=== PATIENT | female | born 1995 | race Caucasian/White ===

== ENCOUNTER 2017-07-24 09:06 | Emergency (ER) | payer BC, MEDICAID ==
[2017-07-24 10:32] LABS: BASOPHILS % (AUTO) 0.2 %; EOSINOPHILS % (AUTO) 0.1 %; HGB - HEMOGLOBIN 14.5 g/dL (12.0-16.0); LYMPHOCYTES # (AUTO) 1.9 10^3/uL (1.5-3.5); LYMPHOCYTES % (AUTO) 11.5 %; MEAN CORPUSCULAR HEMOGLOBIN 29.7 pg (27.0-31.0); MEAN CORPUSCULAR HGB CONC 35.2 g/dL (32.0-36.0); MEAN CORPUSCULAR VOLUME 84.6 fL (81.0-99.0); MEAN PLATELET VOLUME 7.5 fL (7.9-10.8); MONOCYTES # (AUTO) 0.8 10^3/uL (0.0-1.0); MONOCYTES % (AUTO) 4.5 %; NEUTROPHILS % (AUTO) 83.7 %; PLT - PLATELET COUNT 430 10^3/uL (130-450); RED BLOOD COUNT 4.89 10^6/uL (4.20-5.40); RED CELL DISTRIBUTION WIDTH 13.3 % (12.0-15.0); WHITE BLOOD COUNT 16.7 x10^3/uL (4.8-10.8)
--- NOTE | 2017-07-24 10:33 | ED Physician Documentation ---
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 denies: Constipation, Diarrhea : denies: Dysuria, Frequency Skin: denies: Rash Musculoskeletal: denies: Neck pain, Back pain, Extremity pain PD PAST MEDICAL HISTORY - Past Medical History Past Medical History: Yes - Past Surgical History Past Surgical History: Yes - Present Medications Home Medications: Ambulatory Orders Medication Instructions Recorded Confirmed No Known Home Medications [No 07/24/17 07/24/17 Known Home Medications] - Allergies Allergies/Adverse Reactions: Allergies Allergy/AdvReac Type Severity Reaction Status Date / Time Penicillins Allergy Hives Verified 07/24/17 09:42 - Social History Does the pt smoke?: No Smoking Status: Never smoker Does the pt drink ETOH?: No Does the pt have substance abuse?: Yes Substance Use and Type: Marijuana - Immunizations Immunizations are current?: Yes PD ED PE NORMAL - Vitals Vital signs reviewed: Yes (hypertensive mild ) - General General: Alert and oriented X 3, No acute distress, Well developed/nourished - HEENT HEENT: Atraumatic, EOMI - Neck Neck: Supple, no meningeal sign - Cardiac Cardiac: RRR, No murmur - Respiratory Respiratory: No respiratory distress, Clear bilaterally - Abdomen Abdomen: Soft, Non tender - Back Back: No CVA TTP, No spinal TTP - Derm Derm: Normal color, Warm and dry, No rash - Extremities Extremities: No deformity, No edema - Neuro Neuro: No motor deficit, No sensory deficit Eye Opening: Spontaneous Motor: Obeys Commands Verbal: Oriented GCS Score: 15 - Psych Psych: Normal mood, Normal affect Results - Vitals Vitals: Vital Signs - 24 hr 07/24/17 09:39 Temperature 36.3 C L Heart Rate 73 Respiratory 18 Rate Blood Pressure 132/78 H O2 Saturation 100 Oxygen O2 Source Room air - Labs Labs: Laboratory Tests 07/24/17 07/24/17 07/24/17 10:28 10:28 10:42 WBC 16.7 H RBC 4.89 Hgb 14.5 Hct 41.3 MCV 84.6 MCH 29.7 MCHC 35.2 RDW 13.3 Plt Count 430 MPV 7.5 L Neut # (Auto) 14.0 H Lymph # (Auto) 1.9 Edgar # (Auto) 0.8 Eos # (Auto) 0.0 Baso # (Auto) 0.0 Absolute Nucleated RBC 0.01 Nucleated RBC % 0.1 Sodium 133 L Potassium 3.3 L Chloride 102 Carbon Dioxide 22 Anion Gap 9.0 BUN 8 Creatinine 0.5 Estimated GFR (MDRD) 156 Glucose 108 H Calcium 8.9 Total Bilirubin 1.0 AST 15 ALT 15 Alkaline Phosphatase 43 Total Protein 7.6 Albumin 4.4 Globulin 3.2 Albumin/Globulin Ratio 1.4 Lipase 23 Urine Color DARK YELLOW Urine Clarity CLEAR Urine pH 6.5 Ur Specific [place] 1.025 Urine Protein TRACE Urine Glucose (UA) NEGATIVE Urine Ketones >=80 H Urine Occult Blood NEGATIVE Urine Nitrite NEGATIVE Urine Bilirubin NEGATIVE Urine Urobilinogen 0.2 (NORMAL) Ur Leukocyte Esterase NEGATIVE Ur Microscopic Review NOT INDICATED Urine Culture Comments NOT INDICATED - Rads (name of study) 1st trimester ultrasound OB Radiology: Prelim report reviewed (Impression: Positive gestational sac at approximately 6 weeks no pole or cardiac activity yet question too early.) , EMP read indepedently, See rad report Procedures - Bedside sono Bedside sono by EMP: With the use of bedside ultrasound the pelvis is imaged there does appear to be a gestational sac measuring 7 weeks 6 days. I am not able to identify a fetus. - IVC sono (time) 1030 Bedside IVC sono: IVC measures (cm) (1.2), Dehydration (est 1 lilter deficit afte 500 in.) Departure - Departure Disposition: 01 Home, Self Care Clinical Impression: Hyperemesis gravidarum Condition: Stable Instructions: ED Preg Morning Sickness Follow-Up: Val Rose PA [Primary Care Provider] - Comments: Today here in the emergency department we were able to establish that there is a inside the uterus we are unable to see a pole. It is recommended you have a repeat ultrasound in the next 1-2 weeks. Follow-up with your cigar brander. For the nausea and vomiting take vitamin B6 and doxylamine every 6 hours as needed.
[2017-07-24 10:47] LABS: ALBUMIN 4.4 g/dL (3.2-5.5); ALBUMIN/GLOBULIN RATIO 1.4 (1.0-2.2); CALCIUM 8.9 mg/dL (8.5-10.3); CREATININE 0.5 mg/dL (0.4-1.0); TOTAL PROTEIN 7.6 g/dL (6.7-8.2)
[2017-07-24 10:57] LABS: GLUCOSE, URINE (UA) NEGATIVE (NEGATIVE); KETONES,URINE (UA) >=80 mg/dL (NEGATIVE); LEUKOCYTE ESTERASE, URINE NEGATIVE (NEGATIVE); NITRITE,URINE NEGATIVE (NEGATIVE); OCCULT BLOOD,URINE NEGATIVE (NEGATIVE); PH,URINE 6.5 PH (5.0-7.5); PROTEIN,URINE TRACE mg/dL (NEGATIVE); UROBILINOGEN,URINE 0.2 (NORMAL) E.U./dL (NORMAL)
[2017-07-24] MEDS ORDERED: SODIUM CHLORIDE 0.9% 1,000 ML IV ONE (10:57)
[2017-07-24] MEDS ORDERED: PYRIDOXINE 100 MG TABLET PO STA (10:57)
[2017-07-24] MEDS ORDERED: DOXYLAMINE 25 MG TABLET PO STA (10:57)
[2017-07-24 11:03] LABS: BILIRUBIN,URINE NEGATIVE (NEGATIVE); CLARITY,URINE CLEAR (CLEAR); ICTOTEST,URINE NEGATIVE
[2017-07-24 12:33] VITALS: BP 104/67
--- NOTE | 2017-07-27 09:27 | Ultrasound Report ---
FIRST TRIMESTER OB ULTRASOUND: 07/24/2017 HISTORY: Early , vomiting. COMPARISON: No comparisons. TECHNIQUE: Realtime scanning by the supervisor inspection and testing with saved static images reviewed. Transabdominal approach for global evaluation. Endovaginal scanning for detailed assessment of the fetus. FINDINGS: Last menstrual period unknown. Single intrauterine gestational sac 16.3 mm, 6 weeks 3 days, BARBI 03/16/2018. An embryo and cardiac activity are not seen. A 3 mm yolk sac is present. Uterus is anteverted and normal in appearance. Cervix is long and closed. Right ovary 2.8 x 1.8 x 2.3 cm and left ovary 3.6 x 2.4 x 2.8 cm. Both ovaries appear normal. No free fluid. IMPRESSION: SINGLE INTRAUTERINE GESTATIONAL SAC CONTAINING A YOLK SAC. ESTIMATED GESTATIONAL AGE BASED ON MEAN GESTATIONAL SAC DIAMETER IS 6 WEEKS 3 DAYS, BARBI 03/16/2018. A POLE AND CARDIAC ACTIVITY ARE NOT YET SEEN. SUGGEST FOLLOW-UP ULTRASOUND IN 10 TO 14 DAYS TO CONFIRM VIABILITY. TD: 07/24/2017 11:52 [facility]
== END 2017-07-24 12:33 | disposition home or self-care (01) ==
LOC: ED 09:06
DX: O21.1 Hyperemesis gravidarum with metabolic disturbance (principal); Z3A.01 Less than 8 weeks gestation of pregnancy
CPT/HCPCS: 36415; 76801; 76817; 80053; 81003; 83690; 85025; 96360; 96361; 99283; 99284; A9270; 81001; 87086

== ENCOUNTER 2017-07-28 05:33 | Emergency (ER) | payer BC ==
[2017-07-28] MEDS ORDERED: diphenhydrAMINE INJ 50 MG/ML VIAL IVP STA (05:45)
[2017-07-28] MEDS ORDERED: METOCLOPRAMIDE 10 MG/2 ML VIAL IVP STA (05:45)
[2017-07-28] MEDS ORDERED: SODIUM CHLORIDE 0.9% 1,000 ML IV ONE (05:45)
--- NOTE | 2017-07-28 05:51 | ED Physician Documentation ---
PD HPI FEMALE - Stated complaint Stated Complaint: NVD - Chief complaint Chief Complaint: Abd Pain - History obtained from History obtained from: Patient, Family - History of Present Illness Timing - onset: How many weeks ago (1) Timing - details: Gradual onset, Intermittant Similar symptoms before: Work up / diagnostics Recently seen: Emergency Dept - Additional information Additional information: Patient is a 22 year old female approximately 6 weeks by ultrasound who is presenting to the emergency department for nausea and vomiting. patient states that she was here a few days prior and still has uncontrolled vomiting. Patient denies abdominal pain, vaginal bleeding or vaginal discharge. Review of Systems Ten Systems: 10 systems reviewed and negative Constitutional: denies: Fever, Chills GI: reports: Nausea, Vomiting. 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 07/28/17 [Karen Pagan 10-10 mg Tablet] Metoclopramide [Reglan] 10 mg PO Q6H #20 tablet 07/28/17 Ondansetron HCl [Zofran] 8 mg PO Q8HR PRN 07/28/17 07/28/17 - Allergies Allergies/Adverse Reactions: Allergies Allergy/AdvReac Type Severity Reaction Status Date / Time Penicillins Allergy Hives Verified 07/28/17 05:43 - Social History Does the pt smoke?: No Smoking Status: Never smoker Does the pt drink ETOH?: No Does the pt have substance abuse?: Yes - Immunizations Immunizations are current?: Yes - POLST Patient has POLST: No PD ED PE NORMAL - Vitals Vital signs reviewed: Yes - General General: Alert and oriented X 3, No acute distress - HEENT HEENT: Atraumatic - Cardiac Cardiac: RRR - Respiratory Respiratory: No respiratory distress - Abdomen Abdomen: Soft - Derm Derm: Normal color, Warm and dry - Extremities Extremities: No deformity - Neuro Neuro: Alert and oriented X 3, No motor deficit Eye Opening: Spontaneous PD ED PE EXPANDED - HEENT HEENT: Dry mucous membranes Results - Vitals Vitals: Vital Signs - 24 hr 07/28/17 07/28/17 07/28/17 05:35 06:15 06:43 Temperature 36.5 C Heart Rate 97 98 Respiratory 16 17 16 Rate Blood Pressure 126/65 O2 Saturation 97 100 07/28/17 08:44 Temperature Heart Rate 74 Respiratory 16 Rate Blood Pressure 126/82 H O2 Saturation 100 Oxygen O2 Source Room air PD MEDICAL DECISION MAKING - ED course Complexity details: reviewed old records, reviewed results, re-evaluated patient , considered differential, d/w patient, d/w family ED course: Patient was seen and examined at bedside. patient was well appearing and in no acute distress. IV access was gained. urine was collected. Patient was treated with a 2 liter bolus, benadryl and reglan. Patient had no episodes of emesis while in the emergency department. Patient required no further work up and was stable for discharge with outpatient followup. - Sepsis Event Vital Signs: Vital Signs - 24 hr 07/28/17 07/28/17 07/28/17 05:35 06:15 06:43 Temperature 36.5 C Heart Rate 97 98 Respiratory 16 17 16 Rate Blood Pressure 126/65 O2 Saturation 97 100 07/28/17 08:44 Temperature Heart Rate 74 Respiratory 16 Rate Blood Pressure 126/82 H O2 Saturation 100 Oxygen O2 Source Room air Departure - Departure Disposition: 01 Home, Self Care Clinical Impression: Hyperemesis gravidarum Condition: Good Instructions: ED Preg Morning Sickness Follow-Up: Val Rose PA [Primary Care Provider] - Prescriptions: Doxylamine/Pyridoxine HCl [Karen Pagan 10-10 mg Tablet] 1 each PO TID #20 tablet. Metoclopramide [Reglan] 10 mg PO Q6H #20 tablet Comments: Your symptoms today are being caused by hyperemesis gravidum. the first thing is dietary changes, including bland foods. You have also been prescribed a few different medications that you can also try. This may be a recurrent issue for you and you may return to the emergency department at any time for new, worsening or uncontrollable symptoms. Discharge Date/Time: 07/28/17 08:45
[2017-07-28 08:45] VITALS: BP 126/82
== END 2017-07-28 08:45 | disposition home or self-care (01) ==
LOC: ED 05:33
DX: O21.0 Mild hyperemesis gravidarum (principal); Z3A.01 Less than 8 weeks gestation of pregnancy
CPT/HCPCS: 96361; 96374; 99283; J1200; J2765

== ENCOUNTER 2017-07-29 05:18 | Inpatient (IN) | payer BC ==
[2017-07-29] MEDS ORDERED: SODIUM CHLORIDE 0.9% 1,000 ML IV ONE ×2 (05:27→06:23)
[2017-07-29] MEDS ORDERED: diphenhydrAMINE INJ 50 MG/ML VIAL IVP STA (05:31)
[2017-07-29] MEDS ORDERED: METOCLOPRAMIDE 10 MG/2 ML VIAL IVP STA (05:31)
[2017-07-29 05:59] LABS: BASOPHILS % (AUTO) 0.2 %; HGB - HEMOGLOBIN 13.9 g/dL (12.0-16.0); LYMPHOCYTES # (AUTO) 1.9 10^3/uL (1.5-3.5); LYMPHOCYTES % (AUTO) 8.7 %; MEAN CORPUSCULAR HEMOGLOBIN 29.7 pg (27.0-31.0); MEAN CORPUSCULAR HGB CONC 34.3 g/dL (32.0-36.0); MEAN CORPUSCULAR VOLUME 86.6 fL (81.0-99.0); MEAN PLATELET VOLUME 7.6 fL (7.9-10.8); MONOCYTES % (AUTO) 4.5 %; NEUTROPHILS # (AUTO) 18.7 10^3/uL (1.5-6.6); NEUTROPHILS % (AUTO) 86.6 %; PLT - PLATELET COUNT 486 10^3/uL (130-450); RED BLOOD COUNT 4.67 10^6/uL (4.20-5.40); RED CELL DISTRIBUTION WIDTH 13.5 % (12.0-15.0); WHITE BLOOD COUNT 21.6 x10^3/uL (4.8-10.8)
--- NOTE | 2017-07-29 06:03 | ED Physician Documentation ---
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 This is the patient's third visit in the last week for vomiting. patient was treated with two liters of fluid yesterday but states that she continues to not be able to hold anything down so she returned to the emergency department. Review of Systems Constitutional: denies: Fever, Chills GI: reports: Nausea, Vomiting. 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 07/28/17 [Karen Pagan 10-10 mg Tablet] Metoclopramide [Reglan] 10 mg PO Q6H #20 tablet 07/28/17 Ondansetron HCl [Zofran] 8 mg PO Q8HR PRN 07/28/17 07/28/17 - Allergies Allergies/Adverse Reactions: Allergies Allergy/AdvReac Type Severity Reaction Status Date / Time Penicillins Allergy Hives Verified 07/28/17 05:43 - Social History Does the pt smoke?: No Smoking Status: Never smoker Does the pt drink ETOH?: No Does the pt have substance abuse?: Yes - Immunizations Immunizations are current?: Yes - POLST Patient has POLST: No PD ED PE NORMAL - General General: Alert and oriented X 3 - HEENT HEENT: Atraumatic - Neck Neck: Supple, no meningeal sign - Cardiac Cardiac: RRR, No murmur - Respiratory Respiratory: No respiratory distress - Abdomen Abdomen: Soft, Non tender, Non distended - Derm Derm: Normal color, Warm and dry - Extremities Extremities: No deformity - Neuro Neuro: Alert and oriented X 3 Eye Opening: Spontaneous Motor: Obeys Commands Verbal: Oriented GCS Score: 15 PD ED PE EXPANDED - HEENT HEENT: Dry mucous membranes Results - Vitals Vitals: Vital Signs - 24 hr 07/29/17 05:22 Temperature 36.4 C L Heart Rate 72 Respiratory 18 Rate Blood Pressure 122/77 O2 Saturation 98 Oxygen O2 Source Room air - Labs Labs: Laboratory Tests 07/29/17 07/29/17 05:37 05:37 WBC 21.6 H RBC 4.67 Hgb 13.9 Hct 40.5 MCV 86.6 MCH 29.7 MCHC 34.3 RDW 13.5 Plt Count 486 H MPV 7.6 L Sodium 135 Potassium 3.0 L Chloride 100 L Carbon Dioxide 22 Anion Gap 13.0 BUN 10 Creatinine 0.5 Estimated GFR (MDRD) 156 Glucose 124 H Calcium 9.3 Phosphorus 4.0 Magnesium 1.9 Total Bilirubin 1.9 H AST 61 H ALT 55 Alkaline Phosphatase 42 Total Protein 7.7 Albumin 4.4 Globulin 3.3 Albumin/Globulin Ratio 1.3 Lipase 23 PD MEDICAL DECISION MAKING - ED course Complexity details: reviewed old records, reviewed results, re-evaluated patient , considered differential, d/w patient, d/w tax consultant ED course: Patient was seen and examined at bedside. IV access was gained and labs were drawn. patient was started on fluid bolus, reglan and benadryl. When patient' s labs came back her potassium was low and replacement potassium was started. patient was started on a second liter of fluid. Urine was collected. application manager OB was contacted and the case was discussed with him. It was decided patient had failed outpatient therapy and was placed in observation for further evaluation and care. - Sepsis Event Vital Signs: Vital Signs - 24 hr 07/29/17 05:22 Temperature 36.4 C L Heart Rate 72 Respiratory 18 Rate Blood Pressure 122/77 O2 Saturation 98 Oxygen O2 Source Room air Departure - Departure Disposition: ED Place in Observation Clinical Impression: Hyperemesis gravidarum Condition: Good
[2017-07-29 06:16] LABS: ALBUMIN 4.4 g/dL (3.2-5.5); ALBUMIN/GLOBULIN RATIO 1.3 (1.0-2.2); BILIRUBIN,TOTAL 1.9 mg/dL (0.2-1.0); CALCIUM 9.3 mg/dL (8.5-10.3); CREATININE 0.5 mg/dL (0.4-1.0); MAGNESIUM 1.9 mg/dL (1.7-2.8); TOTAL PROTEIN 7.7 g/dL (6.7-8.2)
[2017-07-29] MEDS ORDERED: POTASSIUM CHLOR 10 MEQ/100 ML 10 MEQ/100 ML BAG IV ONE (06:23)
[2017-07-29 06:38] LABS: GLUCOSE, URINE (UA) NEGATIVE (NEGATIVE); KETONES,URINE (UA) >=80 mg/dL (NEGATIVE); LEUKOCYTE ESTERASE, URINE NEGATIVE (NEGATIVE); NITRITE,URINE NEGATIVE (NEGATIVE); OCCULT BLOOD,URINE SMALL (NEGATIVE); PROTEIN,URINE TRACE mg/dL (NEGATIVE); UROBILINOGEN,URINE 0.2 (NORMAL) E.U./dL (NORMAL)
[2017-07-29 06:44] LABS: CLARITY,URINE CLEAR (CLEAR)
[2017-07-29 06:47] LABS: BILIRUBIN,URINE NEGATIVE (NEGATIVE); ICTOTEST,URINE NEGATIVE
[2017-07-29 06:49] LABS: BACTERIA,URINE Few /HPF (None Seen); MUCUS,URINE Moderate Strands; RBC,URINE 0-5 /HPF (0-5); SQUAMOUS EPITHELIAL CELL,UR FEW Squamous (<= Few)
[2017-07-29 06:52] LABS: DIFFERENTIAL COMMENT MANUAL=AUTO DIFF; PLATELET ESTIMATE, MANUAL INCREASED (>450,000) (NORMAL); RBC MORPHOLOGY (MULTIPLE) NORMAL APPEARANCE (NORMAL)
[2017-07-29] MEDS ORDERED: THIAMINE INJ 100 MG, FOLIC ACID INJ 1 MG in SODIUM CHLORIDE 0.9% 100ML 100 ML IV SCH (08:30)
[2017-07-29] MEDS ORDERED: POTASSIUM CHLORIDE INJ 40 MEQ in SODIUM CHLORIDE 0.9% 480 ML IV ONE (08:30)
[2017-07-29] MEDS ORDERED: NACL IV SCH ×2 (09:00→11:00)
[2017-07-29] MEDS ORDERED: DEXTROSE IV ONE (09:00)
[2017-07-29] MEDS ORDERED: DEXTROSE IV SCH ×2 (09:00→11:00)
[2017-07-29] MEDS ORDERED: MULTIVITAMIN IV ONE (09:00)
[2017-07-29] MEDS ORDERED: MULTIVITAMIN IV SCH ×2 (09:00→11:00)
[2017-07-29] MEDS ORDERED: NACL IV ONE (09:00)
[2017-07-29 10:12] LABS: BASOPHILS % (AUTO) 0.1 %; HGB - HEMOGLOBIN 12.3 g/dL (12.0-16.0); LYMPHOCYTES # (AUTO) 1.6 10^3/uL (1.5-3.5); LYMPHOCYTES % (AUTO) 6.1 %; MEAN CORPUSCULAR HGB CONC 34.4 g/dL (32.0-36.0); MEAN CORPUSCULAR VOLUME 87.1 fL (81.0-99.0); MEAN PLATELET VOLUME 7.2 fL (7.9-10.8); MONOCYTES % (AUTO) 3.9 %; NEUTROPHILS # (AUTO) 23.1 10^3/uL (1.5-6.6); NEUTROPHILS % (AUTO) 89.9 %; PLT - PLATELET COUNT 435 10^3/uL (130-450); RED CELL DISTRIBUTION WIDTH 13.3 % (12.0-15.0); WHITE BLOOD COUNT 25.7 x10^3/uL (4.8-10.8)
[2017-07-29] MEDS: NACL IV SCH (10:15)
[2017-07-29] MEDS: MULTIVITAMIN IV SCH (10:15)
[2017-07-29] MEDS: DEXTROSE IV SCH (10:15)
[2017-07-29] MEDS: SODIUM CHLORIDE FLUSH 0.9% 10 ML SYRINGE ONE ×2 (10:25→16:26)
[2017-07-29] MEDS: ONDANSETRON 4 MG/2 ML VIAL IVP PRN ×3 (10:25→21:58)
[2017-07-29 10:26] LABS: ALBUMIN 3.5 g/dL (3.2-5.5); ALBUMIN/GLOBULIN RATIO 1.2 (1.0-2.2); BILIRUBIN,TOTAL 1.4 mg/dL (0.2-1.0); CALCIUM 8.2 mg/dL (8.5-10.3); CREATININE 0.5 mg/dL (0.4-1.0); TOTAL PROTEIN 6.4 g/dL (6.7-8.2)
[2017-07-29 11:15] LABS: DIFFERENTIAL COMMENT MANUAL=AUTO DIFF
--- NOTE | 2017-07-29 11:26 | HISTORY & PHYSICAL EXAMINATION ---
Chief Complaint - Chief Complaint Chief Complaint: Nausea & Vomiting History of Present Illness - Admitted From Admitted From:: ED to Observation - History Obtained From Records Reviewed: YES History obtained from: YES Exam Limitations: NO - History of Present Illness HPI Comment/Other: 22 y.o with approx. 7 week , based on US done 5 days ago that showed a G-Sac and early yolk sac. Patient placed in observation status from ED after three failed trials of outpatient managment for hyperemesis gravidarum. 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 : reports: None HEENT: reports: None Psych: reports: None Musculoskeletal: reports: None Derm: reports: None MRSA Hx?: No Other Past Medical History: Negative - Past Surgical History Other past surgical history: [place] Teeth - Substance History Use: Uses substance without health or social issues: NONE - POLST Patient has POLST: No POLST Status: Full Code Meds/Allgy - Home Medications Home Medications: Ambulatory Orders Medication Instructions Recorded Confirmed No Known Home Medications [No 07/29/17 07/29/17 Known Home Medications] - Allergies Allergies/Adverse Reactions: Allergies Allergy/AdvReac Type Severity Reaction Status Date / Time Penicillins Allergy Hives Verified 07/28/17 05:43 Review of Systems - Respiratory Respiratory: reports: Hemoptysis (mild, secondary to hyperemesis) - Gastrointestinal Gastrointestinal: reports: Reflux/heartburn - Other Findings Other Findings: Nausea Vomiting Exam - Vital Signs Vital Signs: Vital Signs x48h Temp Pulse Resp BP Pulse Ox 07/29/17 10:07 36.9 C 58 L 19 113/63 100 - Physical Exam General Appearance: positive: Mild distress Eyes Bilateral: positive: Normal inspection ENT: positive: ENT inspection nml Neck: positive: Nml inspection, Thyroid nml Respiratory: positive: Chest non-tender, No respiratory distress, Breath sounds nml Cardiovascular: positive: Regular rate & rhythm, No murmur Abdomen: positive: Non-tender Back: positive: Nml inspection Skin: positive: Color nml, Warm Extremities: positive: Non-tender, Full ROM, Nml appearance Neurologic/Psychiatric: positive: Oriented x3 Conclusion/Plan - Lab Results Fish Bones: 07/29/17 10:04 07/29/17 10:04 Core Measures - Issues Hospital Issues and Management Plan: IMPRESSION/PLAN: # 22 y.o approx. 7 weeks EGA based on early US 07/24/17 # Hyperemesis Gravidarum who has failed multiple attempts at outpatient therapy. # Placed on Observation Status for: IV hydration, electrolyte and vitamin supplementation, and IV antimetics, bowel rest # GERD: Protonix IV once a day # Nutrition Consult for tomorrow # Consider Repeat OB US to check for viability and number # Repeat labs tomorrow: CBC and CMP Mother of patient present at time of visit with patient. Condition explained and all questions answered to their satisfaction. - DVT/VTE - Prophylaxis VTE/DVT Device ordered at admit?: No Not Ordered - Low Risk: Low Risk VTE/DVT Prophylaxis med ordered at admit?: No Not Ordered - Medical Reason: Not indicated (Patient fully ambulatory)
[2017-07-29] MEDS: PANTOPRAZOLE 40 MG VIAL IVP SCH (11:33)
[2017-07-29] MEDS ORDERED: SODIUM CHLORIDE FLUSH 0.9% 10 ML SYRINGE ONE ×4 (11:41→23:47)
[2017-07-29] MEDS: PROMETHAZINE 25 MG SUPP PR PRN ×2 (14:51→19:00)
[2017-07-29] MEDS: DEXTROSE 5%-0.9% NACL 1,000 ML IV SCH (17:16)
[2017-07-29] MEDS: AZITHROMYCIN INJ 500 MG in SODIUM CHLORIDE 0.9% 250 ML IV SCH (22:40)
--- NOTE | 2017-07-29 23:58 | PROVIDER PROGRESS NOTE ---
Subjective - Prog Note Date Prog Note Date: 07/29/17 Prog Note Time: 23:51 - Subjective Subjective: CONSULTING SME S: Came in to re-examine patient after placed in observation status. C/O sore throat x 2 days 5/10 throat pain in severity. Had some episodes of emesis in between zofran doses, phenergan supp. were added and patient states no longer having emesis. Was also able to sleep after phenergan supp. ROS negative except for N/V, sore throat, mild abd cramping. Denies vaginal d/c, itching, pain, odor. No hx of STI. Last coitus 1 week ago. O: VSS/AF WBC 25K today. HEENT: BL enlarged tonsils, no purulent drainage CV RRR LCTAB ABD remains soft, non-tender, no rebound No suprapubic pain, no CVAT MS/NM: no calf pain or swelling A/P: Approx 7 weeks with hyperemesis gravidarum WBC 25K in afebrile patient. Only focus of infection is early tonsilitis. Patient started on zithromax 500 mg IVPB q24 x 7 days (discussed with pharmacy) Repeat CBC and CMP in AM TVUS ordered for this evening Revenue Accounting Manager to see patient tomorrow. Patient and her mother understand condition and all questions answered to their satisfaction. Objective - Vital Signs/Intake & Output Vital Signs: Vital Signs x48h Temp Pulse Resp BP Pulse Ox 07/29/17 23:27 36.3 C L 68 16 115/73 99 07/29/17 20:08 36.8 C 69 16 116/74 99 07/29/17 16:21 76 16 119/72 97 07/29/17 16:00 36.4 C L Intake & Output: Intake & Output 07/26/17 07/27/17 07/28/17 07/29/17 23:59 23:59 23:59 23:59 Intake Total 1611.200 Output Total 1001 Balance 610.200 - Lab Results Fish Bones: 07/29/17 10:04 07/29/17 10:04 Other Labs: Lab Results x24hrs 07/29/17 07/29/17 07/29/17 Range/Units 16:00 10:04 10:04 WBC 25.7 H (4.8-10.8) x10^3/uL RBC 4.10 L (4.20-5.40) 10^6/uL Hgb 12.3 (12.0-16.0) g/dL Hct 35.7 L (37.0-47.0) % MCV 87.1 (81.0-99.0) fL MCH 30.0 (27.0-31.0) pg MCHC 34.4 (32.0-36.0) g/dL RDW 13.3 (12.0-15.0) % Plt Count 435 (130-450) 10^3/uL MPV 7.2 L (7.9-10.8) fL Neut # (Auto) 23.1 H (1.5-6.6) 10^3/uL Lymph # (Auto) 1.6 (1.5-3.5) 10^3/uL [place] # (Auto) 1.0 (0.0-1.0) 10^3/uL Eos # (Auto) 0.0 (0.0-0.7) 10^3/uL Baso # (Auto) 0.0 (0.0-0.1) 10^3/uL Absolute Nucleated RBC 0.00 x10^3/uL Band Neuts % (Manual) Not Reportable Abnorm Lymph % (Manual) Not Reportable Nucleated RBC % 0.0 /100WBC Neutrophils # (Manual) Not Reportable Lymphocytes # (Manual) Not Reportable Monocytes # (Manual) Not Reportable Eosinophils # (Manual) Not Reportable Basophils # (Manual) Not Reportable Differential Comment MANUAL=AUTO DIFF WBC Morphology 1+ HYPERSEG NEUT (NORMAL) Sodium 134 L (135-145) mmol/L Potassium 3.4 L (3.5-5.0) mmol/L Chloride 106 (101-111) mmol/L Carbon Dioxide 19 L (21-32) mmol/L Anion Gap 9.0 (6-13) BUN 7 (6-20) mg/dL Creatinine 0.5 (0.4-1.0) mg/dL Estimated GFR (MDRD) 156 (>89) Glucose 111 H (70-100) mg/dL Calcium 8.2 L (8.5-10.3) mg/dL Total Bilirubin 1.4 H (0.2-1.0) mg/dL AST 41 (10-42) IU/L ALT 54 (10-60) IU/L Alkaline Phosphatase 37 L (42-121) IU/L Total Protein 6.4 L (6.7-8.2) g/dL Albumin 3.5 (3.2-5.5) g/dL Globulin 2.9 (2.1-4.2) g/dL Albumin/Globulin Ratio 1.2 (1.0-2.2) Group A Strep Rapid Negative (Negative)
--- NOTE | 2017-07-30 00:08 | Ultrasound Preliminary Report ---
Exam: US OB FIRST TRIMESTER IMPRESSION: 1. Single viable intrauterine at EGA 6 weeks 3 days with BARBI 03/21/2018 based on crown-rump length. [facility] SITE ID: [id number]
--- NOTE | 2017-07-30 00:08 | Ultrasound Report ---
EXAM: FIRST TRIMESTER OBSTETRIC ULTRASOUND (Less than 11 weeks) EXAM DATE: 07/29/2017 10:53 PM. CLINICAL HISTORY: Hyperemesis gravidum, increase WBC 25K. LMP: Uncertain. COMPARISONS: None. TECHNIQUE: Transabdominal and transvaginal ultrasound examination with static image documentation. CLINICAL DATES: EGA 12 weeks 2 days with BARBI 02/08/2018 based on patient reported LMP.. ASSESSMENT: Gestational Sac: Single intrauterine. Mean gestational sac diameter: 18 mm = 6 weeks 5 days. Embryo: CRL (crown-rump length) 4.6 mm = 6 weeks 3 days. Cardiac activity: 123 beats per minute. Yolk sac: 2 mm. Amniotic fluid: Not accurately assessed at this gestational age. Early placenta: Not visible at this gestational age. Other: No perigestational fluid collection demonstrated. MATERNAL STRUCTURES: Uterus: Anteverted. Unremarkable. Cervix: Closed. Right Ovary/Adnexa: Unremarkable. The ovary measures 2 x 1.9 x 1.7 cm, volume 3.3 cc. Left Ovary/Adnexa: Unremarkable. The ovary measures 3.4 x 2.2 x 3.0 cm, volume 11.4 cc. Free Fluid: None. Other: None. IMPRESSION: 1. Single viable intrauterine at EGA 6 weeks 3 days with BARBI 03/21/2018 based on crown-rump length. [facility] Referring Provider Line: [phone] SITE ID: [id number]
[2017-07-30] MEDS ORDERED: SODIUM CHLORIDE FLUSH 0.9% 10 ML SYRINGE ONE ×2 (00:20→06:08)
[2017-07-30] MEDS ORDERED: DEXTROSE 5%-0.9% NACL 1,000 ML IV ONE (01:33)
[2017-07-30] MEDS: DEXTROSE 5%-0.9% NACL 1,000 ML IV SCH ×5 (01:52→22:32)
[2017-07-30] MEDS: PROMETHAZINE 25 MG SUPP PR PRN ×3 (01:56→18:03)
[2017-07-30] MEDS: PANTOPRAZOLE 40 MG VIAL IVP SCH (06:02)
[2017-07-30] MEDS: ONDANSETRON 4 MG/2 ML VIAL IVP PRN ×3 (06:03→20:32)
[2017-07-30] MEDS: DEXTROSE IV SCH (10:03)
[2017-07-30] MEDS: MULTIVITAMIN IV SCH (10:03)
[2017-07-30] MEDS: NACL IV SCH (10:03)
[2017-07-30] MEDS: THIAMINE INJ 100 MG, FOLIC ACID INJ 1 MG in SODIUM CHLORIDE 0.9% 100ML 100 ML IV SCH (10:04)
[2017-07-30 10:13] LABS: BASOPHILS # (AUTO) 0.1 10^3/uL (0.0-0.1); BASOPHILS % (AUTO) 0.5 %; EOSINOPHILS # (AUTO) 0.1 10^3/uL (0.0-0.7); EOSINOPHILS % (AUTO) 0.4 %; HGB - HEMOGLOBIN 12.1 g/dL (12.0-16.0); LYMPHOCYTES # (AUTO) 3.2 10^3/uL (1.5-3.5); LYMPHOCYTES % (AUTO) 25.2 %; MEAN CORPUSCULAR HEMOGLOBIN 30.5 pg (27.0-31.0); MEAN CORPUSCULAR HGB CONC 34.7 g/dL (32.0-36.0); MEAN CORPUSCULAR VOLUME 87.8 fL (81.0-99.0); MEAN PLATELET VOLUME 7.3 fL (7.9-10.8); MONOCYTES % (AUTO) 8.1 %; NEUTROPHILS # (AUTO) 8.4 10^3/uL (1.5-6.6); NEUTROPHILS % (AUTO) 65.8 %; PLT - PLATELET COUNT 358 10^3/uL (130-450); RED BLOOD COUNT 3.98 10^6/uL (4.20-5.40); RED CELL DISTRIBUTION WIDTH 13.5 % (12.0-15.0); WHITE BLOOD COUNT 12.7 x10^3/uL (4.8-10.8)
[2017-07-30 10:36] LABS: ALBUMIN 3.4 g/dL (3.2-5.5); ALBUMIN/GLOBULIN RATIO 1.3 (1.0-2.2); ALKALINE PHOSPHATASE 38 IU/L (42-121); ALT ALANINE AMINOTRANSFERASE 172 IU/L (10-60); AST ASPARTATE AMINOTRANSFERASE 116 IU/L (10-42); BILIRUBIN,TOTAL 1.8 mg/dL (0.2-1.0); BUN - BLOOD UREA NITROGEN < 5 mg/dL (6-20); CALCIUM 8.4 mg/dL (8.5-10.3); CARBON DIOXIDE - CO2 23 mmol/L (21-32); CHLORIDE 105 mmol/L (101-111); CREATININE 0.4 mg/dL (0.4-1.0); GFR - MDRD 201 (>89); GLUCOSE 108 mg/dL (70-100); SODIUM 134 mmol/L (135-145); TOTAL PROTEIN 6.1 g/dL (6.7-8.2)
[2017-07-30 12:54] LABS: MAGNESIUM 1.7 mg/dL (1.7-2.8); PHOSPHORUS 2.7 mg/dL (2.5-4.6)
--- NOTE | 2017-07-30 12:54 | PROVIDER PROGRESS NOTE ---
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 Sx improved with phenerrgan supp. q8h. Throat pain now only a 3/10 compared to yesterday scale of 10/10 O: VSS/AF WBC markedly improved, today 12.7 after single dose of zithromax last night K down to 2.8 TVUS yesterday with early viable single IUP with cardiac activity. ABD SNT, no guarding, MS/NM: N/C A/P: # HD #2 Observation Status # Hyperemesis Gravidarum still requiring IVF and electrolyte replacement. Will add third IV antiemetic if vomiting returns # Seen by Assembler Trim today, we both discussed beginning to advance diet now that emesis from yesterday resolved. Once able to take in food by mouth will add oral B-6 # Hypokalemia: Pharmacy to add IV K with goal to get K to 3.5 # Tonsilitis responding to IV zithromax # Re-check CBC and CMP tomorrow # Re-assess tomorrow AM regarding need to convert to full admit vs ability to go home if improved and able to do so. Objective - Vital Signs/Intake & Output Vital Signs: Vital Signs x48h Temp Pulse Resp BP BP Pulse Ox 07/30/17 10:14 36.8 C 79 18 108/76 99 07/30/17 05:00 37 C 64 16 118/74 98 Intake & Output: Intake & Output 07/27/17 07/28/17 07/29/17 07/30/17 23:59 23:59 23:59 23:59 Intake Total 2611.200 1401.2 Output Total 1001 2050 Balance 1610.200 -648.8 - Lab Results Fish Bones: 07/30/17 10:10 07/30/17 10:10 Other Labs: Lab Results x24hrs 07/30/17 07/30/17 07/29/17 Range/Units 10:10 10:10 16:00 WBC 12.7 H (4.8-10.8) x10^3/uL RBC 3.98 L (4.20-5.40) 10^6/uL Hgb 12.1 (12.0-16.0) g/dL Hct 35.0 L (37.0-47.0) % MCV 87.8 (81.0-99.0) fL MCH 30.5 (27.0-31.0) pg MCHC 34.7 (32.0-36.0) g/dL RDW 13.5 (12.0-15.0) % Plt Count 358 (130-450) 10^3/uL MPV 7.3 L (7.9-10.8) fL Neut # (Auto) 8.4 H (1.5-6.6) 10^3/uL Lymph # (Auto) 3.2 (1.5-3.5) 10^3/uL [place] # (Auto) 1.0 (0.0-1.0) 10^3/uL Eos # (Auto) 0.1 (0.0-0.7) 10^3/uL Baso # (Auto) 0.1 (0.0-0.1) 10^3/uL Absolute Nucleated RBC 0.00 x10^3/uL Nucleated RBC % 0.0 /100WBC Sodium 134 L (135-145) mmol/L Potassium 2.8 L (3.5-5.0) mmol/L Chloride 105 (101-111) mmol/L Carbon Dioxide 23 (21-32) mmol/L Anion Gap 6.0 (6-13) BUN < 5 L (6-20) mg/dL Creatinine 0.4 (0.4-1.0) mg/dL Estimated GFR (MDRD) 201 (>89) Glucose 108 H (70-100) mg/dL Calcium 8.4 L (8.5-10.3) mg/dL Total Bilirubin 1.8 H (0.2-1.0) mg/dL AST 116 H (10-42) IU/L ALT 172 H (10-60) IU/L Alkaline Phosphatase 38 L (42-121) IU/L Total Protein 6.1 L (6.7-8.2) g/dL Albumin 3.4 (3.2-5.5) g/dL Globulin 2.7 (2.1-4.2) g/dL Albumin/Globulin Ratio 1.3 (1.0-2.2) Group A Strep Rapid Negative (Negative)
[2017-07-30] MEDS ORDERED: POTASSIUM CHLORIDE INJ 40 MEQ in SODIUM CHLORIDE 0.9% 480 ML IV SCH (13:00)
[2017-07-30] MEDS: POTASSIUM CHLORIDE INJ 40 MEQ in SODIUM CHLORIDE 0.9% 480 ML IV SCH ×2 (13:24→19:05)
[2017-07-30] MEDS: SODIUM CHLORIDE FLUSH 0.9% 10 ML SYRINGE IVP SCH ×2 (13:24→21:19)
[2017-07-30] MEDS: PROCHLORPERAZINE 10 MG/2 ML VIAL IVP PRN ×2 (15:59→22:27)
[2017-07-30] MEDS: SODIUM CHLORIDE FLUSH 0.9% 10 ML SYRINGE IVP PRN ×3 (16:00→22:27)
[2017-07-30] MEDS: AZITHROMYCIN INJ 500 MG in SODIUM CHLORIDE 0.9% 250 ML IV SCH (21:19)
[2017-07-31] MEDS: PROMETHAZINE 25 MG SUPP PR PRN ×2 (01:39→23:10)
[2017-07-31] MEDS: ONDANSETRON 4 MG/2 ML VIAL IVP PRN ×4 (02:08→20:07)
[2017-07-31] MEDS: SODIUM CHLORIDE FLUSH 0.9% 10 ML SYRINGE IVP PRN ×9 (02:08→21:26)
[2017-07-31] MEDS: DEXTROSE 5%-0.9% NACL 1,000 ML IV SCH (04:51)
[2017-07-31] MEDS: PROCHLORPERAZINE 10 MG/2 ML VIAL IVP PRN ×4 (04:53→21:25)
[2017-07-31 05:46] LABS: BASOPHILS # (AUTO) 0.1 10^3/uL (0.0-0.1); BASOPHILS % (AUTO) 0.4 %; EOSINOPHILS # (AUTO) 0.1 10^3/uL (0.0-0.7); EOSINOPHILS % (AUTO) 0.8 %; HGB - HEMOGLOBIN 12.2 g/dL (12.0-16.0); LYMPHOCYTES # (AUTO) 3.8 10^3/uL (1.5-3.5); LYMPHOCYTES % (AUTO) 28.8 %; MEAN CORPUSCULAR HEMOGLOBIN 30.2 pg (27.0-31.0); MEAN CORPUSCULAR HGB CONC 34.6 g/dL (32.0-36.0); MEAN CORPUSCULAR VOLUME 87.4 fL (81.0-99.0); MEAN PLATELET VOLUME 7.6 fL (7.9-10.8); MONOCYTES # (AUTO) 1.1 10^3/uL (0.0-1.0); MONOCYTES % (AUTO) 8.4 %; NEUTROPHILS # (AUTO) 8.1 10^3/uL (1.5-6.6); NEUTROPHILS % (AUTO) 61.6 %; PLT - PLATELET COUNT 344 10^3/uL (130-450); RED BLOOD COUNT 4.03 10^6/uL (4.20-5.40); RED CELL DISTRIBUTION WIDTH 13.4 % (12.0-15.0); WHITE BLOOD COUNT 13.1 x10^3/uL (4.8-10.8)
[2017-07-31 05:56] LABS: ALBUMIN 3.3 g/dL (3.2-5.5); ALBUMIN/GLOBULIN RATIO 1.3 (1.0-2.2); ALKALINE PHOSPHATASE 41 IU/L (42-121); ALT ALANINE AMINOTRANSFERASE 219 IU/L (10-60); AST ASPARTATE AMINOTRANSFERASE 111 IU/L (10-42); BILIRUBIN,TOTAL 1.5 mg/dL (0.2-1.0); BUN - BLOOD UREA NITROGEN < 5 mg/dL (6-20); CALCIUM 8.3 mg/dL (8.5-10.3); CARBON DIOXIDE - CO2 22 mmol/L (21-32); CHLORIDE 107 mmol/L (101-111); CREATININE 0.4 mg/dL (0.4-1.0); GFR - MDRD 201 (>89); GLUCOSE 103 mg/dL (70-100); MAGNESIUM 1.6 mg/dL (1.7-2.8); PHOSPHORUS 2.8 mg/dL (2.5-4.6); SODIUM 135 mmol/L (135-145); TOTAL PROTEIN 5.9 g/dL (6.7-8.2)
[2017-07-31] MEDS: PANTOPRAZOLE 40 MG VIAL IVP SCH (06:03)
[2017-07-31] MEDS: SODIUM CHLORIDE FLUSH 0.9% 10 ML SYRINGE IVP SCH ×3 (06:04→21:32)
[2017-07-31] MEDS ORDERED: PROCHLORPERAZINE 10 MG/2 ML VIAL IVP PRN (08:41)
[2017-07-31] MEDS ORDERED: MAGNESIUM SULFATE 2 GRAM 2 GM/50 ML BAG IV ONE (09:00)
--- NOTE | 2017-07-31 09:09 | PROVIDER PROGRESS NOTE ---
Subjective - Prog Note Date Prog Note Date: 07/31/17 Prog Note Time: 08:56 - Subjective Pt reports feeling: Improved (Patient reports she feels much better on IV compazine q6h. Interested in advancing her diet today. 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 States zofran and phenergan don 't seem to work as well as IV compazine. No emesis. Able to eat a few rasberries yesterday. Able to drink some fluids without emesis. Interested in advancing diet today. Denies vaginal bleeding. O: VSS/AF see labs below HEENT: Tonsils still slightly enlarged, but improved from presentation to hospital, do not appear as edematous and erythematous. CV RRR LCTAB ABD SNT, no guarding or rebound : N/C, UO good MS/NM: no calf pain/edema A/P: # HD #3 Hyperemesis Gravidarum first trimester, improving: advance diet today with help from ent consultant. # Increase compazine to 10 mg IV q6h to maximize benefits, patient in agreement. # Tonsilitis: continue IV Zithromax in patient until she is able to take p.o. well # Electrolyte abnormalities that need to be supplemented (see orders): Magnesium (2 Grams Magnesium Sulfate over 2 hours). Calcium normal at current albumin per pharmacy. K at 3.0, will continue regular K supplementation until tomorrow Recheck CMP and Phos, Magnesium tomorrow. Patient and mother understand condition and all questions answered to their satisfaction. Patient placed on inpatient status due to length of stay. Objective - Vital Signs/Intake & Output Vital Signs: Vital Signs x48h Temp Pulse Resp BP Pulse Ox 07/31/17 08:03 36.8 C 80 16 105/67 98 07/31/17 05:00 36.9 C 69 16 106/53 L 98 Intake & Output: Intake & Output 07/28/17 07/29/17 07/30/17 07/31/17 23:59 23:59 23:59 23:59 Intake Total 2611.200 4143.7 1447.5 Output Total 1001 4200 1750 Balance 1610.200 -56.3 -302.5 - Lab Results Fish Bones: 07/31/17 05:19 07/31/17 05:19 Other Labs: Lab Results x24hrs 07/31/17 07/31/17 07/30/17 Range/Units 05:19 05:19 10:10 WBC 13.1 H (4.8-10.8) x10^3/uL RBC 4.03 L (4.20-5.40) 10^6/uL Hgb 12.2 (12.0-16.0) g/dL Hct 35.2 L (37.0-47.0) % MCV 87.4 (81.0-99.0) fL MCH 30.2 (27.0-31.0) pg MCHC 34.6 (32.0-36.0) g/dL RDW 13.4 (12.0-15.0) % Plt Count 344 (130-450) 10^3/uL MPV 7.6 L (7.9-10.8) fL Neut # (Auto) 8.1 H (1.5-6.6) 10^3/uL Lymph # (Auto) 3.8 H (1.5-3.5) 10^3/uL [place] # (Auto) 1.1 H (0.0-1.0) 10^3/uL Eos # (Auto) 0.1 (0.0-0.7) 10^3/uL Baso # (Auto) 0.1 (0.0-0.1) 10^3/uL Absolute Nucleated RBC 0.00 x10^3/uL Nucleated RBC % 0.0 /100WBC Sodium 135 (135-145) mmol/L Potassium 3.0 L (3.5-5.0) mmol/L Chloride 107 (101-111) mmol/L Carbon Dioxide 22 (21-32) mmol/L Anion Gap 6.0 (6-13) BUN < 5 L (6-20) mg/dL Creatinine 0.4 (0.4-1.0) mg/dL Estimated GFR (MDRD) 201 (>89) Glucose 103 H (70-100) mg/dL Calcium 8.3 L (8.5-10.3) mg/dL Phosphorus 2.8 2.7 (2.5-4.6) mg/dL Magnesium 1.6 L 1.7 (1.7-2.8) mg/dL Total Bilirubin 1.5 H (0.2-1.0) mg/dL AST 111 H (10-42) IU/L ALT 219 H (10-60) IU/L Alkaline Phosphatase 41 L (42-121) IU/L Total Protein 5.9 L (6.7-8.2) g/dL Albumin 3.3 (3.2-5.5) g/dL Globulin 2.6 (2.1-4.2) g/dL Albumin/Globulin Ratio 1.3 (1.0-2.2) 07/30/17 07/30/17 Range/Units 10:10 10:10 WBC 12.7 H (4.8-10.8) x10^3/uL RBC 3.98 L (4.20-5.40) 10^6/uL Hgb 12.1 (12.0-16.0) g/dL Hct 35.0 L (37.0-47.0) % MCV 87.8 (81.0-99.0) fL MCH 30.5 (27.0-31.0) pg MCHC 34.7 (32.0-36.0) g/dL RDW 13.5 (12.0-15.0) % Plt Count 358 (130-450) 10^3/uL MPV 7.3 L (7.9-10.8) fL Neut # (Auto) 8.4 H (1.5-6.6) 10^3/uL Lymph # (Auto) 3.2 (1.5-3.5) 10^3/uL [place] # (Auto) 1.0 (0.0-1.0) 10^3/uL Eos # (Auto) 0.1 (0.0-0.7) 10^3/uL Baso # (Auto) 0.1 (0.0-0.1) 10^3/uL Absolute Nucleated RBC 0.00 x10^3/uL Nucleated RBC % 0.0 /100WBC Sodium 134 L (135-145) mmol/L Potassium 2.8 L (3.5-5.0) mmol/L Chloride 105 (101-111) mmol/L Carbon Dioxide 23 (21-32) mmol/L Anion Gap 6.0 (6-13) BUN < 5 L (6-20) mg/dL Creatinine 0.4 (0.4-1.0) mg/dL Estimated GFR (MDRD) 201 (>89) Glucose 108 H (70-100) mg/dL Calcium 8.4 L (8.5-10.3) mg/dL Phosphorus (2.5-4.6) mg/dL Magnesium (1.7-2.8) mg/dL Total Bilirubin 1.8 H (0.2-1.0) mg/dL AST 116 H (10-42) IU/L ALT 172 H (10-60) IU/L Alkaline Phosphatase 38 L (42-121) IU/L Total Protein 6.1 L (6.7-8.2) g/dL Albumin 3.4 (3.2-5.5) g/dL Globulin 2.7 (2.1-4.2) g/dL Albumin/Globulin Ratio 1.3 (1.0-2.2)
[2017-07-31] MEDS ORDERED: POTASSIUM CHLORIDE INJ 40 MEQ in SODIUM CHLORIDE 0.9% 480 ML IV ONE (10:00)
[2017-07-31] MEDS: MULTIVITAMIN IV SCH (11:07)
[2017-07-31] MEDS: NACL IV SCH (11:07)
[2017-07-31] MEDS: DEXTROSE IV SCH (11:07)
[2017-07-31] MEDS: THIAMINE INJ 100 MG, FOLIC ACID INJ 1 MG in SODIUM CHLORIDE 0.9% 100ML 100 ML IV SCH (11:08)
[2017-07-31] MEDS: D5NS W/20 MEQ KCL 1,000 ML IV SCH (18:50)
[2017-07-31] MEDS: AZITHROMYCIN INJ 500 MG in SODIUM CHLORIDE 0.9% 250 ML IV SCH (21:26)
[2017-08-01] MEDS: D5NS W/20 MEQ KCL 1,000 ML IV SCH ×2 (02:14→09:05)
[2017-08-01] MEDS: PROCHLORPERAZINE 10 MG/2 ML VIAL IVP PRN ×3 (03:37→10:07)
[2017-08-01] MEDS: ONDANSETRON 4 MG/2 ML VIAL IVP PRN ×2 (03:37→09:05)
[2017-08-01 05:42] LABS: BASOPHILS # (AUTO) 0.1 10^3/uL (0.0-0.1); BASOPHILS % (AUTO) 0.7 %; EOSINOPHILS # (AUTO) 0.2 10^3/uL (0.0-0.7); EOSINOPHILS % (AUTO) 1.4 %; HGB - HEMOGLOBIN 12.8 g/dL (12.0-16.0); LYMPHOCYTES # (AUTO) 2.9 10^3/uL (1.5-3.5); LYMPHOCYTES % (AUTO) 24.6 %; MEAN CORPUSCULAR HEMOGLOBIN 30.3 pg (27.0-31.0); MEAN CORPUSCULAR HGB CONC 34.6 g/dL (32.0-36.0); MEAN CORPUSCULAR VOLUME 87.4 fL (81.0-99.0); MEAN PLATELET VOLUME 7.6 fL (7.9-10.8); MONOCYTES # (AUTO) 0.8 10^3/uL (0.0-1.0); MONOCYTES % (AUTO) 6.8 %; NEUTROPHILS # (AUTO) 7.7 10^3/uL (1.5-6.6); NEUTROPHILS % (AUTO) 66.5 %; PLT - PLATELET COUNT 355 10^3/uL (130-450); RED BLOOD COUNT 4.23 10^6/uL (4.20-5.40); RED CELL DISTRIBUTION WIDTH 13.4 % (12.0-15.0); WHITE BLOOD COUNT 11.6 x10^3/uL (4.8-10.8)
[2017-08-01 05:56] LABS: ALBUMIN 3.4 g/dL (3.2-5.5); ALBUMIN/GLOBULIN RATIO 1.3 (1.0-2.2); ALKALINE PHOSPHATASE 47 IU/L (42-121); ALT ALANINE AMINOTRANSFERASE 403 IU/L (10-60); AST ASPARTATE AMINOTRANSFERASE 153 IU/L (10-42); BILIRUBIN,TOTAL 1.2 mg/dL (0.2-1.0); BUN - BLOOD UREA NITROGEN < 5 mg/dL (6-20); CALCIUM 8.6 mg/dL (8.5-10.3); CARBON DIOXIDE - CO2 22 mmol/L (21-32); CHLORIDE 106 mmol/L (101-111); CREATININE 0.5 mg/dL (0.4-1.0); GFR - MDRD 156 (>89); GLUCOSE 99 mg/dL (70-100); MAGNESIUM 1.8 mg/dL (1.7-2.8); PHOSPHORUS 3.8 mg/dL (2.5-4.6); SODIUM 134 mmol/L (135-145); TOTAL PROTEIN 6.1 g/dL (6.7-8.2)
[2017-08-01] MEDS: SODIUM CHLORIDE FLUSH 0.9% 10 ML SYRINGE IVP PRN (06:42)
[2017-08-01] MEDS: PANTOPRAZOLE 40 MG VIAL IVP SCH (06:42)
[2017-08-01] MEDS: SODIUM CHLORIDE FLUSH 0.9% 10 ML SYRINGE IVP SCH ×3 (07:17→21:34)
[2017-08-01] MEDS ORDERED: D5NS W IV SCH (10:00)
[2017-08-01] MEDS ORDERED: MULTIVITAMIN IV SCH (10:00)
[2017-08-01] MEDS ORDERED: KCL IV SCH (10:00)
[2017-08-01] MEDS ORDERED: ONDANSETRON 4 MG/2 ML VIAL IVP PRN (11:43)
[2017-08-01] MEDS ORDERED: LACTATED RINGERS 1,000 ML IV SCH (12:00)
[2017-08-01] MEDS: LACTATED RINGERS 1,000 ML IV SCH ×3 (12:15→23:40)
[2017-08-01] MEDS ORDERED: MORPHINE 10 MG/ML VIAL IVP ONE (12:18)
[2017-08-01] MEDS ORDERED: MORPHINE 2 MG/ML SYRINGE ONE (12:19)
--- NOTE | 2017-08-01 12:42 | PROVIDER PROGRESS NOTE ---
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 Was able to eat solids yesterday and this AM. Was in process of discharging patient when she had an episode of acute dyskinesia in her narda and upper neck muscles started at 11:20 hours, no SOB sx, but described as fairly constant twitching/spasm of jaw and neck muscles 6/10 in pain severity, occasionally waxing and waning. Patient had received O: VSS/AF CV RRR LCTAB ABD SNT MS/NM:NC Labs: electrolytes improved. Transaminases elevated consistent with hyperemesis. A/P: # HD 4 Hyperemesis gravidarum in patient 6 6/7 weeks EGA by US on admission # Improved clinically with regards n/v on compazine and able to advance diet since yesterday to solid foods. # Acute Dyskinesia of face and neck muscles, a know side effect of compazine medication, reason why this medication was chosen last after all other anti- emetics had not worked. # IV morphine 3 mg now for facial pain associated with dyskinesia, titrate up with 2 mg more prn. # Stop IV electrolytes and vitamins given patient currently able to eat and labs markedly improved. # Discontinue compazine (pharmacy to update in allergy/adv profile) # Discontinue phenergan (same category of drug as compazine) # Zofran 4 mg p.o. or IV q4h prn n/v (try p.o. first in anticipation of possible d/c home tomorrow) # Add doxylamine/B-6 on same schedule as diclegis: Doxylamine 25 mg p.o qhs. Patient already taking B-6 25 mg with meals and bedtime. # LR at 125 mL/hr x 6 hr then 25 mL/hr to try to flush compazine out of patient' s system more quickly. Case discussed in detail with pharmacists. IV compazine dose given around 10AM should begin to wear off in 6-10 hours from time of administration, and out of patient's system entirely in approx. 24 hours. Family told about not using compazine in future and possible cross reactivity with phenergan in future given same category of drug. Voiced underestanding. If patient's n/v under control overnight, patient eating, and adverse reaction to compazine resolved as well, may be able to discharge home tomorrow. All questions answered to patient and her mother's satisfaction. Objective - Vital Signs/Intake & Output Vital Signs: Vital Signs x48h Temp Pulse Resp BP Pulse Ox 08/01/17 08:31 36.2 C L 98 18 108/67 99 08/01/17 05:00 36.6 C 87 16 114/66 98 Intake & Output: Intake & Output 07/29/17 07/30/17 07/31/17 08/01/17 23:59 23:59 23:59 23:59 Intake Total 3301.2 2120 Output Total 1050 Balance 2251.2 2120 - Lab Results Fish Bones: 08/01/17 05:15 08/01/17 05:15 Other Labs: Lab Results x24hrs 08/01/17 08/01/17 Range/Units 05:15 05:15 WBC 11.6 H (4.8-10.8) x10^3/uL RBC 4.23 (4.20-5.40) 10^6/uL Hgb 12.8 (12.0-16.0) g/dL Hct 37.0 (37.0-47.0) % MCV 87.4 (81.0-99.0) fL MCH 30.3 (27.0-31.0) pg MCHC 34.6 (32.0-36.0) g/dL RDW 13.4 (12.0-15.0) % Plt Count 355 (130-450) 10^3/uL MPV 7.6 L (7.9-10.8) fL Neut # (Auto) 7.7 H (1.5-6.6) 10^3/uL Lymph # (Auto) 2.9 (1.5-3.5) 10^3/uL [place] # (Auto) 0.8 (0.0-1.0) 10^3/uL Eos # (Auto) 0.2 (0.0-0.7) 10^3/uL Baso # (Auto) 0.1 (0.0-0.1) 10^3/uL Absolute Nucleated RBC 0.01 x10^3/uL Nucleated RBC % 0.1 /100WBC Sodium 134 L (135-145) mmol/L Potassium 3.5 (3.5-5.0) mmol/L Chloride 106 (101-111) mmol/L Carbon Dioxide 22 (21-32) mmol/L Anion Gap 6.0 (6-13) BUN < 5 L (6-20) mg/dL Creatinine 0.5 (0.4-1.0) mg/dL Estimated GFR (MDRD) 156 (>89) Glucose 99 (70-100) mg/dL Calcium 8.6 (8.5-10.3) mg/dL Phosphorus 3.8 (2.5-4.6) mg/dL Magnesium 1.8 (1.7-2.8) mg/dL Total Bilirubin 1.2 H (0.2-1.0) mg/dL AST 153 H (10-42) IU/L ALT 403 H (10-60) IU/L Alkaline Phosphatase 47 (42-121) IU/L Total Protein 6.1 L (6.7-8.2) g/dL Albumin 3.4 (3.2-5.5) g/dL Globulin 2.7 (2.1-4.2) g/dL Albumin/Globulin Ratio 1.3 (1.0-2.2)
[2017-08-01] MEDS: ONDANSETRON ODT 4 MG TABLET TL PRN ×2 (14:18→20:07)
[2017-08-01] MEDS ORDERED: DOXYLAMINE 25 MG TABLET PO SCH (21:00)
[2017-08-01] MEDS: AZITHROMYCIN INJ 500 MG in SODIUM CHLORIDE 0.9% 250 ML IV SCH (21:56)
[2017-08-02] MEDS: ONDANSETRON ODT 4 MG TABLET TL PRN ×2 (02:24→08:31)
[2017-08-02] MEDS: PANTOPRAZOLE 40 MG VIAL IVP SCH (07:09)
[2017-08-02] MEDS: SODIUM CHLORIDE FLUSH 0.9% 10 ML SYRINGE IVP SCH (07:09)
[2017-08-02 07:55] VITALS: BP 111/70
--- NOTE | 2017-08-02 09:55 | Discharge Plan ---
Discharge Plan Disposition: Home, Self Care Condition: Good Prescriptions: Ondansetron Odt [Zofran Odt] 4 mg PO Q4H #120 tablet Diet: Regular Activity Restrictions: Activity as Tolerated Shower Restrictions: No Driving Restrictions: Yes (STAY AT HOME NEXT TWO WEEKS FOR MEDICAL REASONS.) Weight Bearing: Full Weight Additional Instructions or Follow Up instructions: ADDITIONAL DISCHARGE MEDS FOR HOME: RANITIDINE 150 MG #60: ONE PO BID, 3 REFILLS ZITHROMAX 500 MG PO QPM X 3 DAYS TO COMPLETE 7 DAY COURSE No Smoking: If you smoke, Please STOP! Call for help. Follow-up with: Atif Jimenez MD [Provider Admit Priv/Credential] -
--- NOTE | 2017-08-02 12:41 | DISCHARGE SUMMARY ---
"Discharge Summary Admit Date: 07/29/17 Discharge Date: 08/02/17 Discharging Provider: RICHIE Code Status: Attempt Resuscitation Condition at Discharge: Good - DIAGNOSES Admission Diagnoses: HYPEREMESIS GRAVIDARUM Discharge Diagnoses with Status of Each Condition: HYPEREMESIS GRAVIDARUM, CONTROLLED, CONDITION GOOD TONISLITIS, TREATED - HPI History of Present Illness: 22 y.o with approx. 7 week , based on US done 5 days ago that showed a G-Sac and early yolk sac. Patient placed in observation status from ED after three failed trials of outpatient managment for hyperemesis gravidarum. - CONSULTS | PROCEDURES Consultations: DIETARY Procedures: IV ANTI-EMETICS IV ELECTROLYTE REPLACEMENT IV VITAMIN SUPPLEMENTATION IV ANTIBIOTIC THERAPY OBSTETRICAL ULTRASOUND, FIRST TRIMESTER - HOSPITAL COURSE Hospital Course: The patient was admitted 07/29/17 with hyperemesis, hypovolemia and electrolyte abnormalities, as well as a WBC of 25K, afebrile. She underwent a transvaginal US the evening of admission which confirmed viable, single IUP with EGA 6 3/7 weeks based on CRL measurement (see report). In addition to IV electrolyte and vitamin supplementation, she was started on IV zofran and p.r. phenergan suppositories for n/v without success. She was also started on IV zithromax 500 mg QHS for 7 day course. IV compazine was started on 07/31/16 which controlled her n/v and the patient was able to start eating a bland diet. The moring of she was taking oral compazine, tolerating diet and ready for discharge home when she had an acute episode of dyskinesia of her jaw and neck muscles, which was promptly stopped with 3 mg of IV morphine. No further episodes of dyskinesia occurred. Compazine and phenergan were discontinued. She was switched to IV/PO zofran and doxylamine 25 mg was added to her B6 25 mg p.o. qid regimen. The patient had no further episodes of dyskinesia/n/v on this regimen of antimetics and was tolerating regular diet the evening of 08/01/17 and morning of 08/02/17. She is discharged to home with the following medications : Zithromax 500 mg p.o. qhs x 3 days to finish 7 day course Ranitidine 150 mg, #60: 1 p.o. bid with 3 RF Zofran 4 mg #120, one p.o. q4h for n/v B6 50 mg p.o. with meals and bedtime Doxylamine (OTC): 12.5 mg in AM, 12.5 mg in PM and 25 mg HS (all p.o.) The goal of therapy is to wean off of antimetics after at least one full week without nausea. Patient education on avoiding triggers that cause n/v were discussed extensively with patient. - ALLERGIES Allergies/Adverse Reactions: Allergies Allergy/AdvReac Type Severity Reaction Status Date / Time Penicillins Allergy Hives Verified 07/28/17 05:43 prochlorperazine AdvReac Severe DYSKINESIA Verified 08/01/17 13:26 - MEDICATIONS Home Medications: Ambulatory Orders Medication Instructions Recorded Confirmed Ondansetron Odt [Zofran Odt] 4 mg PO Q4H #120 tablet 08/02/17 Home Medications Other | Comments: Zithromax 500 mg p.o. qhs x 3 days to finish 7 day course Ranitidine 150 mg, #60: 1 p.o. bid with 3 RF Zofran 4 mg #120, one p.o. q4h for n/v B6 50 mg p.o. with meals and bedtime Doxylamine (OTC): 12.5 mg in AM, 12.5 mg in PM and 25 mg HS (all p.o.) The goal of therapy is to wean off of antimetics after at least one full week without nausea. Patient education on avoiding triggers that cause n/v were discussed extensively with patient. - PHYSICAL EXAM AT DISCHARGE General Appearance: positive: No acute distress, Alert Eyes Bilateral: positive: Normal inspection ENT: positive: ENT inspection nml Neck: positive: Nml inspection Respiratory: positive: Chest non-tender Cardiovascular: positive: Regular rate & rhythm Abdomen: positive: Non-tender Back: positive: Nml inspection Skin: positive: Color nml, No rash, Warm Extremities: positive: Non-tender, Full ROM - LABS Result Diagrams: 08/01/17 05:15 08/01/17 05:15 - DIAGNOSTIC IMAGING Diagnostic Imaging Results: Prelim report reviewed - FOLLOW UP Follow Up: Patient will F/U with an OB physician at [facility] in [place] in 1 week for F/U for hyperemesis and to get plugged into ob clinic for care. - TIME SPENT Time Spent in Discharge (Minutes): 60"
== END 2017-08-02 10:20 | disposition home or self-care (01) | DRG 781 ==
LOC: ED 05:18 → OBS 09:34 → OBSVTOIN 07-31 08:35 → MS3 07-31 09:39
PROVIDERS: ADMIT Obstetrics & Gynecology; ATTEND Obstetrics & Gynecology
DX: O21.1 Hyperemesis gravidarum with metabolic disturbance (principal); O99.511 Diseases of the respiratory system complicating pregnancy, first trimester; J03.90 Acute tonsillitis, unspecified; O99.351 Diseases of the nervous system complicating pregnancy, first trimester; G24.01 Drug induced subacute dyskinesia; T43.3X5A Adverse effect of phenothiazine antipsychotics and neuroleptics, initial encounter; Y92.230 Patient room in hospital as the place of occurrence of the external cause; O99.611 Diseases of the digestive system complicating pregnancy, first trimester; K21.9 Gastro-esophageal reflux disease without esophagitis; Z3A.01 Less than 8 weeks gestation of pregnancy
CPT/HCPCS: 36415; 76801; 80053; 81001; 81003; 83690; 83735; 84100; 84702; 85025; 87070; 87086; 87430; 96361; 96365; 96366; 96367; 96368; 96375; 96376; 99283; 99284